=== PATIENT | female | born 1985 | race Caucasian/White ===

== ENCOUNTER 2024-01-14 09:57 | Day surgery (SDC) | payer BC ==
[2024-01-14] MEDS ORDERED: Acetaminophen 500 MG TAB ONE (10:21)
[2024-01-14] MEDS: Acetaminophen 500 MG TAB PO SCH (10:23)
[2024-01-14] MEDS: Iron Sucrose Complex 500 MG in Sodium Chloride 0.9% 250 ML 250 ML IVPB SCH (11:01)
[2024-01-14 15:44] VITALS: BP 129/74; TEMP 98.5
== END 2024-01-14 15:45 | disposition home or self-care (01) ==
LOC: ONC/OP 09:57
PROVIDERS: ATTEND Nurse Practitioner Women's Health
DX: K90.9 Intestinal malabsorption, unspecified (principal)
CPT/HCPCS: 96365; 96366; J1756; J7050